=== PATIENT | male | born 1945 | race Caucasian/White ===

== ENCOUNTER → 2022-01-14 15:12 | Outpatient (CLI) | payer MEDICARE, SELFPAY | PROVIDERS: PCP Physician Assistant; Visit Provider Urology | DX: R82.90 Unspecified abnormal findings in urine (principal); R97.20 Elevated prostate specific antigen [PSA]; R39.9 Unspecified symptoms and signs involving the genitourinary system; R30.0 Dysuria; Z77.22 Contact with and (suspected) exposure to environmental tobacco smoke (acute) (chronic); Z87.898 Personal history of other specified conditions | CPT/HCPCS: 51798; 81002; 87086; 99214 ==

== ENCOUNTER → 2022-09-10 11:51 | Outpatient (CLI) | payer MEDICARE, SELFPAY | PROVIDERS: PCP Physician Assistant; Visit Provider Urology | DX: N40.1 Benign prostatic hyperplasia with lower urinary tract symptoms (principal); R35.1 Nocturia; R31.29 Other microscopic hematuria; R97.20 Elevated prostate specific antigen [PSA]; R39.9 Unspecified symptoms and signs involving the genitourinary system; R82.81 Pyuria; Z77.22 Contact with and (suspected) exposure to environmental tobacco smoke (acute) (chronic) | CPT/HCPCS: 51798; 81002; 87086; 99214 ==

== ENCOUNTER → 2022-12-30 10:41 | Outpatient (CLI) | payer MEDICARE, SELFPAY | PROVIDERS: PCP Internal Medicine; Visit Provider Urology | DX: R39.9 Unspecified symptoms and signs involving the genitourinary system (principal); R97.20 Elevated prostate specific antigen [PSA]; N40.1 Benign prostatic hyperplasia with lower urinary tract symptoms; R35.1 Nocturia; Z77.22 Contact with and (suspected) exposure to environmental tobacco smoke (acute) (chronic) | CPT/HCPCS: 51798; 81002; 87086; 99214 ==

== ENCOUNTER → 2023-04-28 09:53 | Outpatient (CLI) | payer MEDICARE, SELFPAY | PROVIDERS: PCP Internal Medicine; Visit Provider Urology | DX: N40.1 Benign prostatic hyperplasia with lower urinary tract symptoms (principal); N39.44 Nocturnal enuresis; R31.29 Other microscopic hematuria; R97.20 Elevated prostate specific antigen [PSA]; R35.1 Nocturia; R82.81 Pyuria; R39.9 Unspecified symptoms and signs involving the genitourinary system; Z77.22 Contact with and (suspected) exposure to environmental tobacco smoke (acute) (chronic) | CPT/HCPCS: 51798; 81002; 87086; 99214 ==

== ENCOUNTER 2023-10-04 06:07 | Day surgery (SDC) | payer MEDICARE, SELFPAY ==
[2023-09-27 15:22] VITALS: BMI 34.5
[2023-10-04 06:40] VITALS: BMI 34.4
[2023-10-04 06:55] VITALS: BP 131/84; PULSE 82; RESP 12; TEMP 36.3; O2SAT 98
[2023-10-04] MEDS: LACTATED RINGERS 1,000 ML 21 ML IV (06:58)
== END 2023-10-04 06:10 | disposition home or self-care (01) ==
PROVIDERS: PCP Internal Medicine; Referring Provider Urology; Visit Provider Urology
DX: N40.1 Benign prostatic hyperplasia with lower urinary tract symptoms (principal); Z53.09 Procedure and treatment not carried out because of other contraindication
CPT/HCPCS: 0421T

== ENCOUNTER 2023-11-08 06:10 | Day surgery (SDC) | payer MEDICARE, MEDICAID, SELFPAY ==
[2023-11-08 06:52] VITALS: BP 153/84; PULSE 91; RESP 17; TEMP 36.9; O2SAT 98; BMI 33.9
[2023-11-08] MEDS: ACETAMINOPHEN 325 MG TABLET 975 MG PO (07:22)
--- NOTE | 2023-11-08 07:45 | SUR.PREOP ---
Patient tells nurse that he sprained his 2nd toe on his right foot a few days ago when he tripped at home. Patient was seen at [facility] and had xrays which were negative for fracture and placed on antibiotic ointment. Toe is reddened, swollen, and painful. Dr Caldera at bedside and evaluating. Surgery cancelled due to appearance of infection. Patient advised to call the office to arrange a future surgery appointment and to contact primary MD for antibiotic regimen. V/U. Home with .
== END 2023-11-08 06:15 | disposition home or self-care (01) ==
LOC: OR 06:12
PROVIDERS: PCP Internal Medicine; Referring Provider Urology; Visit Provider Urology
DX: N40.1 Benign prostatic hyperplasia with lower urinary tract symptoms (principal); Z53.09 Procedure and treatment not carried out because of other contraindication
CPT/HCPCS: 82962; J0330; J1100; J2405; J2704; J3010